=== PATIENT | female | born 1945 | race Caucasian/White ===

== ENCOUNTER 2020-05-05 11:01 | Day surgery (SDC) | payer MEDICARE, MEDICAID, SELFPAY ==
[2020-04-30 13:58] VITALS: BMI 25.4
--- NOTE | 2020-05-04 10:13 | HO.ANESPROP2 ---
Documented by User: Arlet Soliman 05/04/20 10:16 HPI - Anesthesia Eval Consult details Narrative: 74yo F for colonoscopy: repeat from 02/2020 to follow up on polyp with high grade dysplasia PMFSH Past Medical History Medical History Arthritis Asthma Diabetes Elevated cholesterol GERD (gastroesophageal reflux disease) HTN (hypertension) Surgical History Surgical History H/O cataract extraction History of carpal tunnel release Hx of colonoscopy Social History Social History Smoking Status: Unknown if ever smoked Use of substances other than those prescribed or required for medical reasons: No Advance Directives: No Advance Directives Information Provided: No Advance Directives on File: No Meds Allergies Allergy/AdvReac Type Severity Reaction Status Date / Time alendronate sodium Allergy Rash Verified 04/30/20 13:51 [From Fosamax] ciprofloxacin [From Cipro] Allergy Rash Verified 04/30/20 13:48 cyclobenzaprine Allergy Rash Verified 04/30/20 13:51 metformin [From Glucophage] Allergy Rash Verified 04/30/20 13:51 oxycodone Allergy Unknown Verified 04/30/20 13:51 penicillin G Allergy Rash Verified 04/30/20 13:51 Home Medications Medication Instructions Recorded Confirmed Type acetaminophen [Tylenol Ex Str 500 mg PO Q6H PRN 04/30/20 04/30/20 History Rapid Release] albuterol sulfate 0.63 mg INHALATION QID PRN 04/30/20 04/30/20 History enalapril maleate [Vasotec] 5 mg PO DAILY 04/30/20 04/30/20 History glipizide 10 mg PO DAILY 04/30/20 04/30/20 History metformin 500 mg PO TID 04/30/20 04/30/20 History omeprazole 20 mg PO DAILY 04/30/20 04/30/20 History simvastatin 20 mg PO DAILY 04/30/20 04/30/20 History Exam Exam Date and Time: May 04, 2020 1013 Height,Weight and Vital Signs: Height 5 ft 1 in Weight 61.235 kg Assessment and Plan Assessment Anesthesia Assessment: Chart Reviewed Documented by User: Ross Moreno 05/05/20 13:16 PMFSH Past Medical History Medical History Arthritis Asthma Diabetes Elevated cholesterol GERD (gastroesophageal reflux disease) HTN (hypertension) Surgical History Surgical History H/O cataract extraction History of carpal tunnel release Hx of colonoscopy Social History Social History Smoking Status: Unknown if ever smoked Use of substances other than those prescribed or required for medical reasons: No Advance Directives: No Advance Directives Information Provided: No Advance Directives on File: No Meds Allergies Allergy/AdvReac Type Severity Reaction Status Date / Time alendronate sodium Allergy Rash Verified 04/30/20 13:51 [From Fosamax] ciprofloxacin [From Cipro] Allergy Rash Verified 04/30/20 13:48 cyclobenzaprine Allergy Rash Verified 04/30/20 13:51 metformin [From Glucophage] Allergy Rash Verified 04/30/20 13:51 oxycodone Allergy Unknown Verified 04/30/20 13:51 penicillin G Allergy Rash Verified 04/30/20 13:51 Home Medications Medication Instructions Recorded Confirmed Type acetaminophen [Tylenol Ex Str 500 mg PO Q6H PRN 04/30/20 04/30/20 History Rapid Release] albuterol sulfate 0.63 mg INHALATION QID PRN 04/30/20 04/30/20 History enalapril maleate [Vasotec] 5 mg PO DAILY 04/30/20 04/30/20 History glipizide 10 mg PO DAILY 04/30/20 04/30/20 History metformin 500 mg PO TID 04/30/20 04/30/20 History omeprazole 20 mg PO DAILY 04/30/20 04/30/20 History simvastatin 20 mg PO DAILY 04/30/20 04/30/20 History Exam Airway Mallampati Class: II TM Dist: >3cm Neck ROM: Full Denture: Upper
[2020-05-05 12:16] VITALS: BP 144/57; PULSE 85; RESP 16; TEMP 36; O2SAT 98
[2020-05-05] MEDS: Lactated Ringers 1,000 ML 100 ML IVCONT (12:32)
[2020-05-05 13:08] LABS: Glucose, Whole Blood 204 mg/dL (60-115)
--- NOTE | 2020-05-05 13:13 | MHC.SHP ---
Pre-Procedural Eval Section B Chief Complaint: HX POLYPS Details of Present Illness: polyp with high grade dysplasia Relevant Family History (Specify if Yes): No Present Medications: None Medical History: Significant History (see H&P no changes) History of Previous Operations: No relevant previous surgery Allergies: Allergies Allergy/AdvReac Type Severity Reaction Status Date / Time alendronate sodium Allergy Rash Verified 04/30/20 13:51 [From Fosamax] ciprofloxacin [From Cipro] Allergy Rash Verified 04/30/20 13:48 cyclobenzaprine Allergy Rash Verified 04/30/20 13:51 metformin [From Glucophage] Allergy Rash Verified 04/30/20 13:51 oxycodone Allergy Unknown Verified 04/30/20 13:51 penicillin G Allergy Rash Verified 04/30/20 13:51 Review of Systems Sugical H&P ROS: Negative: Constitution, Cardiovascular, Respiratory, Neurological, Psychiatric, Hem-Onc, Allergic/Immunologic, Gastrointestinal, Genitourinary, Musculoskeletal, Integumentary, Endocrine and Eyes/Ears/Nose/Throat Exam Surgical H&P Exam: Normal: HEENT, Normal: Heart, Normal: Lungs, Normal: Extremities, Normal: Abdomen, Normal: Skin and Normal: Neurological Plan Diagnosis/Plan: Unchanged Patient has been examined and remains a candidate for the planned procedure
--- NOTE | 2020-05-05 13:46 | PM.OP ---
Brief Operative Note Date of procedure: 05/05/20 Pre-op diagnosis: colon polyp Post-op diagnosis: same Procedure: colonoscopy with biopsy and cautery of polyp site Surgeon: Min Jerome Anesthesia: MAC Estimated blood loss (mL): 5 Pathology: other (biopsy hepatic flexure polypectomy site) Condition: stable Disposition: PACU
[2020-05-05 13:50] VITALS: BP 130/67; PULSE 82; RESP 16; TEMP 36.3; O2SAT 98
[2020-05-05 14:04] VITALS: BP 137/61; PULSE 82; RESP 16; TEMP 36.1; O2SAT 100
--- NOTE | 2020-05-05 14:30 | OP_ITS ---
SURGEON: Min Jerome MD INDICATIONS: Previous adenoma at the hepatic flexure with high-grade dysplasia. PREOPERATIVE DIAGNOSIS: POSTOPERATIVE DIAGNOSIS: PROCEDURE PERFORMED: Colonoscopy to the terminal ileum with biopsy and cauterization of colon polyp site. ESTIMATED BLOOD LOSS: COMPLICATIONS: ANESTHESIA: ASSISTANTS: SPECIMENS: MEDICATIONS: Monitored anesthesia care. DESCRIPTION OF PROCEDURE: History and physical was performed. The risks and benefits of the procedure were explained to the patient. Informed consent was obtained. The patient was placed in the left lateral decubitus position. A digital rectal exam was performed and was found to be normal. The Olympus pediatric video colonoscope was introduced into the rectum and advanced to the cecum without difficulty. The cecum was identified by transillumination, palpation, and identification of ileocecal valve. Examination was performed and the scope was removed. She tolerated the procedure well and was taken to recovery area in stable condition. FINDINGS: The terminal ileum was normal. The visualized colonic mucosa was normal. The previous polypectomy site was identified at the hepatic flexure. This showed some scarring from the previous polypectomy with a possible small area of polypoid tissue measuring about 3 mm. This was removed with biopsy forceps and the base was cauterized with a snare. Multiple biopsies were obtained as well. No other polyps were identified. Retroflexed examination showed small internal hemorrhoids. IMPRESSION: Colon polyp. RECOMMENDATION: Follow up the biopsy results. MD EKATERINA Oconnell/LAKISHA / [id number]
== END 2020-05-05 14:45 | disposition home or self-care (01) ==
PROVIDERS: PCP Podiatrist; Visit Provider Internal Medicine Gastroenterology
PROC: 0DJD8ZZ Inspection of Lower Intestinal Tract, Via Natural or Artificial Opening Endoscopic (ICD-10-PCS; CPT 45378; principal; 2020-05-05 12:30)
DX: Z12.11 Encounter for screening for malignant neoplasm of colon (principal); Z86.010 Personal history of colon polyps; D12.3 Benign neoplasm of transverse colon; K64.8 Other hemorrhoids; K21.9 Gastro-esophageal reflux disease without esophagitis; E11.9 Type 2 diabetes mellitus without complications; Z88.8 Allergy status to other drugs, medicaments and biological substances; Z88.0 Allergy status to penicillin; Z88.1 Allergy status to other antibiotic agents; J45.909 Unspecified asthma, uncomplicated; Z79.84 Long term (current) use of oral hypoglycemic drugs
CPT/HCPCS: 45380; 82947; 88305

== ENCOUNTER 2020-10-20 06:18 | Day surgery (SDC) | payer MEDICARE, MEDICAID, SELFPAY ==
[2020-10-14 10:16] VITALS: BMI 25.4
--- NOTE | 2020-10-19 08:19 | P.CONAN_ITS ---
Documented by User: Arlet Soliman 10/19/20 08:21 HPI - Anesthesia Eval Consult details Narrative: 75yo F for Colonoscopy s/p Colonoscopy with MAC 04/2020 [facility] Past Medical History Medical History Arthritis Asthma Diabetes Elevated cholesterol GERD (gastroesophageal reflux disease) HTN (hypertension) Surgical History Surgical History H/O cataract extraction History of carpal tunnel release Hx of colonoscopy Social History Social History Smoking Status: Unknown if ever smoked Advance Directives: No Advance Directives Information Provided: Yes Meds Allergies Allergy/AdvReac Type Severity Reaction Status Date / Time alendronate sodium Allergy Intermediate Rash Verified 10/20/20 07:11 [From Fosamax] ciprofloxacin [From Cipro] Allergy Intermediate Rash Verified 10/20/20 07:11 cyclobenzaprine Allergy Intermediate Rash Verified 10/20/20 07:11 metformin [From Glucophage] Allergy Intermediate Rash Verified 10/20/20 07:11 penicillin G Allergy Intermediate Rash Verified 10/20/20 07:11 oxycodone Allergy Mild Diarrhea Verified 10/20/20 07:11 Home Medications Medication Instructions Recorded Confirmed Last Taken Type acetaminophen 500 mg PO Q6H PRN 04/30/20 10/14/20 Unknown History albuterol sulfate 0.63 mg INHALATION QID PRN 04/30/20 10/14/20 Unknown History enalapril maleate [Vasotec] 5 mg PO DAILY 04/30/20 04/30/20 10/20/20 05:00 History glipizide 10 mg PO DAILY 04/30/20 10/14/20 Unknown History metformin 500 mg PO TID 04/30/20 10/14/20 Unknown History omeprazole 20 mg PO DAILY 04/30/20 10/14/20 Unknown History simvastatin 20 mg PO DAILY 04/30/20 10/14/20 Unknown History Exam Exam Date and Time: October 19, 2020 0819 Height,Weight and Vital Signs: Height 5 ft 1 in Weight 61.235 kg Assessment and Plan Assessment Anesthesia Assessment: Chart Reviewed Documented by User: Shelia Major 10/20/20 07:29 [facility] Past Medical History Medical History Arthritis Asthma Diabetes Elevated cholesterol GERD (gastroesophageal reflux disease) HTN (hypertension) Surgical History Surgical History H/O cataract extraction History of carpal tunnel release Hx of colonoscopy Social History Social History Smoking Status: Unknown if ever smoked Advance Directives: No Advance Directives Information Provided: Yes Meds Allergies Allergy/AdvReac Type Severity Reaction Status Date / Time alendronate sodium Allergy Intermediate Rash Verified 10/20/20 07:11 [From Fosamax] ciprofloxacin [From Cipro] Allergy Intermediate Rash Verified 10/20/20 07:11 cyclobenzaprine Allergy Intermediate Rash Verified 10/20/20 07:11 metformin [From Glucophage] Allergy Intermediate Rash Verified 10/20/20 07:11 penicillin G Allergy Intermediate Rash Verified 10/20/20 07:11 oxycodone Allergy Mild Diarrhea Verified 10/20/20 07:11 Home Medications Medication Instructions Recorded Confirmed Last Taken Type acetaminophen 500 mg PO Q6H PRN 04/30/20 10/14/20 Unknown History albuterol sulfate 0.63 mg INHALATION QID PRN 04/30/20 10/14/20 Unknown History enalapril maleate [Vasotec] 5 mg PO DAILY 04/30/20 04/30/20 10/20/20 05:00 History glipizide 10 mg PO DAILY 04/30/20 10/14/20 Unknown History metformin 500 mg PO TID 04/30/20 10/14/20 Unknown History omeprazole 20 mg PO DAILY 04/30/20 10/14/20 Unknown History simvastatin 20 mg PO DAILY 04/30/20 10/14/20 Unknown History Exam Airway Mallampati Class: I (Edentulous) TM Dist: >3cm Neck ROM: Full Denture: Upper Loose/Missing/Broken Teeth: Yes, Upper and Lower Heart: RRR Lungs: CTA Assessment and Plan Assessment Anesthesia Assessment: Anesthesia Plan Discussed and Chart Reviewed Final Anesthetic Review NPO: Yes ASA Class: III Final Preanesthetic Review: Meds/Allgs Chart Reviewed, Consent Obtained/Reviewed and Anes Risks/Benef Reviewed Patient Risk: Intermediate Procedure Risk: Low Anesthetic Plan Anesthetic Plan: MAC: Disposition: Standard PACU
[2020-10-20 07:05] LABS: Glucose, Whole Blood 263 mg/dL (60-115)
[2020-10-20 07:21] VITALS: BP 146/67; PULSE 81; RESP 18; TEMP 36.1; O2SAT 99
--- NOTE | 2020-10-20 07:31 | P.HPSUR_ITS ---
Pre-Procedural Eval Section B Chief Complaint: hx of polyps Details of Present Illness: large polyp on last colonoscopy. evaluate for complete resection Relevant Family History (Specify if Yes): No Relevant Social History: None Present Medications: see Short Stay Collaborative assessment Medical History: Significant History (see H & P, also had covid in july) History of Previous Operations: Relevant previous surgery/procedure and date(s) (colonoscopy in Feb 2020) Allergies: Allergies Allergy/AdvReac Type Severity Reaction Status Date / Time alendronate sodium Allergy Intermediate Rash Verified 10/20/20 07:11 [From Fosamax] ciprofloxacin [From Cipro] Allergy Intermediate Rash Verified 10/20/20 07:11 cyclobenzaprine Allergy Intermediate Rash Verified 10/20/20 07:11 metformin [From Glucophage] Allergy Intermediate Rash Verified 10/20/20 07:11 penicillin G Allergy Intermediate Rash Verified 10/20/20 07:11 oxycodone Allergy Mild Diarrhea Verified 10/20/20 07:11 Review of Systems Sugical H&P ROS: Negative: Constitution, Cardiovascular, Respiratory, Neurological, Psychiatric, Hem-Onc, Allergic/Immunologic, Gastrointestinal, Genitourinary, Musculoskeletal, Integumentary, Endocrine and Eyes/Ears/Nose/Throat Exam Surgical H&P Exam: Normal: HEENT, Normal: Heart, Normal: Lungs, Normal: E xtremities, Normal: Abdomen, Normal: Skin and Normal: Neurological Plan I have reviewed the history and physical and performed a pertinent physical examination on my patient. No changes have occurred unless specified.
--- NOTE | 2020-10-20 07:31 | P.CONAN_ITS ---
[facility] Past Medical History Medical History Arthritis Asthma Diabetes Elevated cholesterol GERD (gastroesophageal reflux disease) HTN (hypertension) Surgical History Surgical History H/O cataract extraction History of carpal tunnel release Hx of colonoscopy Social History Social History Smoking Status: Unknown if ever smoked Advance Directives: No Advance Directives Information Provided: Yes Meds Allergies Allergy/AdvReac Type Severity Reaction Status Date / Time alendronate sodium Allergy Intermediate Rash Verified 10/20/20 07:11 [From Fosamax] ciprofloxacin [From Cipro] Allergy Intermediate Rash Verified 10/20/20 07:11 cyclobenzaprine Allergy Intermediate Rash Verified 10/20/20 07:11 metformin [From Glucophage] Allergy Intermediate Rash Verified 10/20/20 07:11 penicillin G Allergy Intermediate Rash Verified 10/20/20 07:11 oxycodone Allergy Mild Diarrhea Verified 10/20/20 07:11 Home Medications Medication Instructions Recorded Confirmed Last Taken Type acetaminophen 500 mg PO Q6H PRN 04/30/20 10/14/20 Unknown History albuterol sulfate 0.63 mg INHALATION QID PRN 04/30/20 10/14/20 Unknown History enalapril maleate [Vasotec] 5 mg PO DAILY 04/30/20 04/30/20 10/20/20 05:00 History glipizide 10 mg PO DAILY 04/30/20 10/14/20 Unknown History metformin 500 mg PO TID 04/30/20 10/14/20 Unknown History omeprazole 20 mg PO DAILY 04/30/20 10/14/20 Unknown History simvastatin 20 mg PO DAILY 04/30/20 10/14/20 Unknown History Exam Exam Date and Time: October 20, 202031 Height,Weight and Vital Signs: Height 5 ft 1 in Weight 61.235 kg Pertinent Lab Results Pertinent Lab Results: Laboratory Tests 10/20/20 07:01 POC Glucose 263 H Airway Mallampati Class: I TM Dist: >3cm Neck ROM: Full Denture: Upper Loose/Missing/Broken Teeth: Yes, Upper and Lower Heart: RRR Lungs: CTA Assessment and Plan Assessment Anesthesia Assessment: Anesthesia Plan Discussed and Chart Reviewed Final Anesthetic Review NPO: Yes ASA Class: III Final Preanesthetic Review: Meds/Allgs Chart Reviewed, Consent Obtained/Reviewed and Anes Risks/Benef Reviewed Patient Risk: Intermediate Procedure Risk: Low Anesthetic Plan Anesthetic Plan: MAC: Disposition: Standard PACU
[2020-10-20 08:15] VITALS: BP 117/55; PULSE 80; RESP 16; TEMP 36.6; O2SAT 100
--- NOTE | 2020-10-20 08:23 | PM.OP ---
Brief Operative Note Date of Service: 10/20/20 Pre-op diagnosis: tubular adenoma with high grade dysplasia Post-op diagnosis: same Procedure: colonoscopy Surgeon: Min Jerome Anesthesia: MAC Estimated blood loss (mL): 5 Pathology: other (biopsy from prior polypectomy site) Condition: stable Disposition: PACU
[2020-10-20 08:30] VITALS: BP 149/64; PULSE 74; RESP 16; O2SAT 99
--- NOTE | 2020-10-20 08:36 | OP_ITS ---
SURGEON: iMn Jerome MD INDICATIONS: Tubular adenoma with focal high-grade dysplasia on colonoscopy 03/05, assess for completeness of resection. PREOPERATIVE DIAGNOSIS: POSTOPERATIVE DIAGNOSIS: PROCEDURE PERFORMED: Colonoscopy to the terminal ileum with biopsy. ESTIMATED BLOOD LOSS: COMPLICATIONS: ANESTHESIA: ASSISTANTS: SPECIMENS: MEDICATIONS: Monitored anesthesia care. DESCRIPTION OF PROCEDURE: History and physical performed. The risks and benefits of the procedure were explained to the patient. Informed consent was obtained. The patient was placed in the left lateral decubitus position. A digital rectal exam was performed and was found to be normal. The Olympus pediatric video colonoscope was introduced into the rectum and advanced to the cecum without difficulty. The cecum was identified by transillumination, palpation, and identification of ileocecal valve. Examination was performed. The scope was removed. She tolerated the procedure well. Returned to recovery room in stable condition. FINDINGS: The terminal ileum was examined and appeared normal. The visualized colonic mucosa was normal. At the level of the hepatic flexure, the previous polypectomy site was identified. This appeared to show some scarring. There was no apparent residual polypoid tissue. Stella ink was present in the vicinity. The site was biopsied to assess for any residual tissue, although endoscopically, the resection was complete. No other polyps were identified. Retroflexed examination was normal. The quality of the prep was good. IMPRESSION: History of tubular adenoma with high-grade dysplasia. RECOMMENDATION: Follow up the biopsy results. MD EKATERINA Oconnell/PALMIRAL / [id number]
== END 2020-10-20 09:10 | disposition home or self-care (01) ==
PROVIDERS: PCP Internal Medicine; Visit Provider Internal Medicine Gastroenterology
PROC: 0DJD8ZZ Inspection of Lower Intestinal Tract, Via Natural or Artificial Opening Endoscopic (ICD-10-PCS; CPT 45378; principal; 2020-10-20 07:30)
DX: Z12.11 Encounter for screening for malignant neoplasm of colon (principal); Z86.010 Personal history of colon polyps; K63.5 Polyp of colon; K21.9 Gastro-esophageal reflux disease without esophagitis; I10 Essential (primary) hypertension; J45.909 Unspecified asthma, uncomplicated; E11.9 Type 2 diabetes mellitus without complications; Z79.84 Long term (current) use of oral hypoglycemic drugs; Z79.899 Other long term (current) drug therapy
CPT/HCPCS: 45380; 82947; 88305

== ENCOUNTER 2025-03-10 09:31 | Outpatient (AMB) | payer OTHER, MEDICAID, SELFPAY ==
--- NOTE | 2025-03-10 09:34 | MHC.OFFVIS ---
Intake Visit Reasons: dementia Accompanied by: [employer] O[employer]ATOR Allergies alendronate sodium (From Fosamax) Allergy (Intermediate, Verified 03/10/25 09:38) Rash ciprofloxacin (From Cipro) Allergy (Intermediate, Verified 03/10/25 09:38) Rash cyclobenzaprine Allergy (Intermediate, Verified 03/10/25 09:38) Rash metformin (From Glucophage) Allergy (Intermediate, Verified 03/10/25 09:38) Rash penicillin G Allergy (Intermediate, Verified 03/10/25 09:38) Rash oxycodone Allergy (Mild, Verified 03/10/25 09:38) Diarrhea Medication List - Last Reconciled 03/10/25 by Natalie Dawn CNP acetaminophen 500 mg PO Q6H PRN albuterol sulfate 0.63 mg inhalation QID PRN enalapril maleate (Vasotec) 5 mg PO DAILY glipizide 10 mg PO DAILY metformin 500 mg PO TID omeprazole 20 mg PO DAILY quetiapine 25 mg PO BEDTIME 30 days sertraline 25 mg PO DAILY 30 days simvastatin 20 mg PO DAILY HPI Comments Details: 79-year-old woman with Alzheimer dementia with symptoms of forgetfulness, anxiety, and other behavioral symptoms. 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 She returned a few days ago from visiting family down [facility] for a few months. Memory was about the same. Mood was okay. Sleep was okay. She tripped over a rug and fell, fracturing two ribs about two months ago. No other falls. She enjoyed watching TV. [facility] Medical History (Updated 03/10/25 @ 09:38 by Natalie Dawn CNP) Alzheimer dementia GERD (gastroesophageal reflux disease) Arthritis Diabetes Asthma Elevated cholesterol HTN (hypertension) Surgical History History of carpal tunnel release H/O cataract extraction Hx of colonoscopy Review of Systems Const Denies chills, Denies daytime sleepiness, Denies difficulty sleeping, Denies fatigue, Denies fever(s), Denies frequent falls, Denies headache(s), Denies increased appetite, Denies poor appetite, Denies snoring, Denies weakness, Denies weight gain and Denies weight loss Eyes Denies loss of vision ENT Denies vertigo, Denies dizziness and Denies headache(s) Card Denies chest pain at rest, Denies chest pain with activity, Denies syncope, Denies leg edema and Denies palpitations Resp Denies snoring GI Denies constipation, Denies heartburn, Denies diarrhea and Denies nausea Denies urinary frequency, Denies urinary incontinence and Denies urinary urgency Musc Denies abnormal gait, Denies numbness and Denies tingling Skin/Breast Denies dry skin and Denies rash Neuro Denies abnormal gait, Denies vertigo, Denies dizziness, Denies syncope, Denies frequent falls, Denies headache(s), Denies lack of coordination, Denies loss of vision, Reports memory loss, Denies numbness, Denies restless legs, Denies seizure-like activity, Denies tingling, Denies paresthesias, Denies tremor(s) and Denies weakness Psych Denies anxiety, Denies depression, Denies auditory hallucinations, Reports memory loss, Denies visual hallucinations and Denies suicidal ideation Endo Denies fatigue and Denies palpitations Physical Exam Const Other: General Appearance:? normal, in no acute distress. Skin:? no rashes, no significant birthmarks. Heart:? S1, S2 normal, no murmurs. Lungs:? clear anteriorly and posteriorly. Extremities:? no edema. Psych:? alert, cooperative with exam. Neuro Other: Mental Status:?Alert and awake with normal spontaneity of speech, fluency, comprehension, and affect.?She was able to tell me she was here with her granddaughter and her name. She was able to tell me her age and birthday. Cranial Nerves:?Pupils are equal, round and reactive to light. External occular muscles are intact. Visual mendez are full. Face is symmetrical. Facial sensations are normal. Tongue is midline. Palate elevates symmetrically. Shoulder shrugging is normal. Hearing to bedside conversation is normal. Sensory Exam:?....? Coordination:?No ataxia,?no titubation.? Gait Exam: Within normal limits. Cerebellar Signs:?[id number] is okay. Extrapyramidal System:?No tremor, rigidity with normal facial expressions.? Pronator Drift:?Not present.? Involuntary Movements:?No tremors seen.? Speech:?Normal.? Results Reviewed Results Reviewed: CT brain WO at [facility] in Oct 2022: Mild to mod AD type atrophy. Assessment & Plan Assessment & Plan (1) Alzheimer dementia: Code(s): G30.9 - Alzheimer's disease, unspecified; F02.80 - Dementia in other diseases classified elsewhere, unspecified severity, without behavioral disturbance, psychotic disturbance, mood disturbance, and anxiety Category: Medical Qualifiers: Alzheimer's disease onset: unspecified onset Dementia severity: unspecified severity Dementia behavioral or psychological symptom: with mood disturbance Qualified Code(s): G30.9 - Alzheimer's disease, unspecified; F02.83 - Dementia in other diseases classified elsewhere, unspecified severity, with mood disturbance Plan: Continue sertraline 25mg 1 tablet daily. Continue quetiapine 25mg 1 tablet at bedtime. Stay physically and socially active. Coding Level of Care Code Est Pt Level 4 (97491) Diagnoses Alzheimer's dementia with mood disturbance, unspecified dementia severity, unspecified timing of dementia onset G30.9; F02.83 Alzheimer's disease onset: unspecified onset Dementia severity: unspecified severity Dementia behavioral or psychological symptom: with mood disturbance
--- OUTSIDE RECORDS SUMMARY | 2025-03-10 10:20 | XMS_ITS | Patient Health Record ---
Author Organization [facility] Address [address] [place] [id number] Care Team Providers Care Field Gauger Name Role Phone Beatriz Romero Primary Care Provid er Unavailable Min Jerome Jr Unavailable Allergies Allergen (clinical drug ingredient) Drug/Non Drug Allergy documented on EMR Reaction Allergy Type Onset Date Status oxycodone Oxycodone HCl Unknown Drug Allergy Act mireya Glucophage Unknown Drug Allergy Active alendronate Fosamax Unknown Drug Allergy Activ e Cyclobenzaprine HCl Unknown Drug Allergy Active ciprofloxacin Cipro Unknown Drug Allergy Act mireya penicillin G Penicillin G Sodium Unknown Drug Allergy Active Reason For Referral No Information Medications Medication SIG (Take, Route, Frequency, Duration) Notes Start Date End Date Status Albuterol Sulfate HFA 108 (90 Base) MCG/ACT INHALE DANDO DOS SOPLIDOS POR V A ORAL CADA CUATRO HORAS CUANDO SEA NECESARIO PARA LA SIBILANCIA Inhalation for 17 Active glipiZIDE 10 MG TOME DARRYL TABLETA TOD OS LOS HITCHCOCK Oral for 90 Active Simvastatin 20 MG TOME DARRYL TABLETA TOD OS LOS D AL ACOSTARSE Oral for 30 Active metFORMIN HCl ER 500 MG TOME DARRYL TABLETA AAMIR VECES AL D A Oral for 90 Active Pain Relief Extra Strength 500 MG TOME DARRYL TABLETA CADA SEIS HORAS CUANDO SEA NECESARIO PARA EL DOLOR POR 10 D? Oral for 10 Active MiraLax (colon prep) 8.3 ounce ((238) grams mixed with Gatorade or Crystal Light orally begin at 5:00 p.m. the day before the procedure for 1 day 01/09/2020 Active Lipitor 10 MG 1 tablet Orally Once a day for 30 day(s) Active Immunizations Vaccine Route Administration Date Status Comme nts Influenza Unknown 04/16/2019 Administered Social History Tobacco Use: Social History Observation Description Date Details (start date - stop date) Never Smoker NA - NA Tobacco Use/Smoking Question Answer Notes Patient is a nonsmoker Alcohol Screen Question Answer Notes Did you have a drink containing alcohol in the p ast year? No Points 0 Interpretation Negative Problems Problem Type SNOMED Code ICD Code Onset Dates Problem Status W/U Status Risk Notes Problem 608417337 Colon cancer screening (Z12.11) Active confirmed Problem 54414381 Diarrhea, unspecified type (R19.7) Active confirmed Plan Of Treatment Future Test Test Name Order Date COLONOSCOPY 01/09/2020 Insurance Providers Payer Name Payer Address Payer Phone Subscriber Number Group Number Insured Name Patient Relationship to Insured Coverage Start Date Coverage End Date [facility] [employer] [address] [address] [place] [address] [phone] [id number] EBSSY PARKER Self - patient is the insured MEDICAID OF [facility] [address] [place] [phone] [id number] BESSY PARKER Self - patient is the insured MEDICARE OF [place] [address] [place] [id number] BESSY PARKER Self - patient is the insured Medical (General) History Medical History History ICD Code hypertension type II diabetes mild asthma gerd elevated cholesterol Surgical History Surgery Date(Month/Year) cataract carpel tunnel
--- OUTSIDE RECORDS SUMMARY | 2025-03-10 10:20 | XMS_ITS ---
Author Name [place] NOEOrin Erasmo Address [address] [place] [address] Phone [phone] [facility] Care Team Providers Care Pin Attacher Name Role Phone Orin [place] Unavailable [phone] ARTURO ABRAMS Unavailable [phone] [facility] Unavailable Reason for Referral Not Available Allergies, adverse reactions, alerts Allergen Type Reaction Severity Status Onset Date Ciprofloxacin Allergy to substance (disorder) Unknown Unkn own Active N/A Fosamax Allergy to substance (disorder) Unknown Unknown Active N/A Cyclobenzaprine Allergy to substance (disorder) Unknown Un known Active N/A Penicillin Allergy to substance (disorder) Unknown Unknown Active N/A Oxycodone Allergy to substance (disorder) Unknown Unknown Active N/A History of medication use Medication Class Instructions Start Date End Date Atorvastatin Calcium 80 mg Tab take 1 tablet orally once daily 2021-10-22 No Data Available Enalapril Maleate 20 mg Tab 1 tablet orally daily 2021 No Data Available glipiZIDE 10 mg Tab 1 tablet orally daily 2021-10-22 2024-08-07 metFORMIN ER 500 mg Tab ER 24hr 1 tablet three times a day 2021-10-22 2024-08-07 Metoprolol Succinate ER 25 mg Tab ER 24hr 1 tablet once daily 2021-10-22 No Data Available Omeprazole 20 mg Cap delayed rel 1 tablet daily 2021-10-22 2024-08-07 OneTouch UltraSoft Lancets Miscellaneous No Data Available 2021-10-22 No Data Available OneTouch Ultra Strip No Data Available 2021-10-22 No Data Available Diclofenac Sodium 1 % Gel No Data Available 2022-04-29 No Data Available Acetaminophen ER 650 mg Tab ER No Data Available 2022-06-21 No Data Available Albuterol Sulfate HFA 108 (90 Base) MCG/ACT Aerosol Solution Inhalation 1-2 puffs every 4-6 hrs, as needed for coughing or SOA 2022-08-01 No Data Available Meclizine 12.5 mg Tab 1 tablet orally as needed 4-06 2024-08-07 MAGNESIUM OXIDE 400 MG TABLET 1 tablet PO daily 2022-11-02 No Data Available Magnesium Oxide -Mg Supplement 400 (240 mg) MG Tab No Data Available 2023-03-22 No Data Available Cyanocobalamin 1000 MCG/ML Solution Injection 1 ml intramuscularly monthly 2023-05-17 No Data Richa ilable Alcohol Prep 70 % Pad No Data Available 2023-05-24 N o Data Available QUEtiapine Fumarate 25 mg Tab 1 tablet orally QHS 2024-08-07 No Data Available Sertraline 25 mg Tab Take 1 tablet daily 2024-08-07 No Data Available Problem List Problem Status Onset Date Resolved Date Synopsis Osteoarthritis Active 2022-08-26 N/A Stable2/10 pain scaleSupportive careManagement as per PMDRecommend OTC oral/topical analgesics09/26/2023:Follows up with PCP.Reports chronic generalized joint pain. Takes Tylenol as needed.Uses walker and cane as needed. hypertension Active 2022-08-26 N/A BP range 130 -140s/70-80sRX: Glipizide, Metformin for DM Enalapril, Metoprolol for HTNManagement as per PMDRecommend low salt dietBP goal < 140/90, annual kidney function testmonitor for hypoglycemia - if any signs, consider stopping glipizid09/26/2023:Follows up with PCP.Glucose: 108 mg/dl at home today.Does not have BP monitor at home. Task initiated ordering one. Patient instructed to start checking BP and start a BP log. Taking: DM: Glipizide, Metformin HTN: Enalapril, MetoprololDenies any acute complaint.Continue treatment as prescribed, follow up as instructed.Monitor BP regularly at home.Follow low Sodium diet. Contact CB 06/02 as needed.08/07/24:enalapril was increased to 20mg Checks her BP sometimesStates had issues with her insurance and had issues seeing her PCP (last seen December 25, 2023), has an appt with a new PCP on Monday last BW on December 25, 2023 GERD (gastroesophageal reflux disease) Active 2022-08-26 N/A ControlledRX: OmeprazoleManagement as per PMDAvoid greasy foods, spicy foods, caffeine, citrus09/26/2023:Stable. Follows up with PCP.Taking: Omeprazole 20 mg Cap delayed rel 1 tablet dailyDenies any acute complaints. 08/07/24: omeprazole stopped, changed her diet and has been doing ok without it. Has been a while since stopped taking it. Asthma Active 2022-08-26 N/A StableRX: Albu terol PRNManagement as per PMDNotify CB of any worsening symptoms09/26/2023:Stable. No recent or current respiratory symptoms.No supplemental oxygen at home.Follows up with PCP.Has Rx for: Albuterol to use as needed. Contact CB 06/02 as needed. 08/07/24: has not had to use ventolin for a long time Alzheimer dementia Active 2024-08-07 N/A diagno sed with it couple of months ago by a neurologiststarted on zoloft and seroquelHas agitation/anxiety states memory is ok as of now for the most part remembers things forgetting to eat at times due to it Needs assistance with most of her ADL's as she forgets at times. Other problems related to medical facilities and other health care Active 2023-09-26 N/A DEMENTIA CO NTINGENCY PLANLast updated: 08/07/2024Member to call for the following symptoms: Aggression/ Agitation/ Anorexia/ Anxiety/ BP <100/60 / Delirium/ Dysuria/ Fever/ HR <50 / HR >100 / Insomnia/ Urinary frequency/ WithdrawnPlanned intervention: Place order for urinalysis and culture; family to take sample to lab/ Encourage increased fluid intake/ Ask about last bowel movement/ Ask about use of pain medications and treat pain if present/ Stop recently started medication: _/ Assess for UTI symptoms; if present, start Bactrim DS BID x3 days/ Assess for UTI symptoms; if present, start Macrobid 100mg BID x5 days/ Trazodone 50mg at bedtime/ Melatonin 3mg at bedtime/ Quetiapine 50mg PO q12h PRN agitation/ Risperidone 0.5mg PO q12h PRN agitation/ Sertraline 25mg daily/ Limit extra stimulation Type 2 diabetes mellitus with hyperlipidemiaType 2 diabetes mellitus with diabetic neuropathy, without long-term current use of insulinType 2 diabetes mellitus with both eyes affected by mild nonpro Active 2022-08-26 N/A StableRX: AtorvastatinManagement as per PMDRecommend low cholesterol, annual cholesterol screening09/26/2023:Follows up with PCP.Glucose: 108 mg/dl at home today.Taking: DM: Glipizide, Metformin H: Atorvastatin 80 mg QDAdvised to follow low fat, low carb, heart healthy diet.Continue treatment as prescribed. Follow up with PCP as scheduled.Contact CB 06/02 as needed.08/07/24: states metformin and glipizide was stopped by the patient as the doctor changed her prescriptions without checking her new BW Has an appt with PCP now on Monday for BW and to reevaluate these medicationsAverage BG: around 125's 150s sees optimization manager- gets eye injections a month (macular degeneration) Encounters Encounters Type Facility Date of Service Diagnosis/Co mplaint New patient,40-59min; chronic exacerbation, 2 stable chronic or 1 acute illness add add modifier 95 for video (do not use for phone, instead use [id number]) [facility] ([place]/2022 Hyperlipidemia, unspecifiedGastro-esophageal reflux disease without esophagitisUnspecified asthma, uncomplicatedUnspecified osteoarthritis, unspecified siteType 2 diabetes mellitus without complicationsEssential (primary) hypertension New patient,40-59min; chronic exacerbation, 2 stable chronic or 1 acute illness add add modifier 95 for video (do not use for phone, instead use [id number]) [facility] [place] 08[place]/2022 New patient,40-59min; chronic exacerbation, 2 stable chronic or 1 acute illness add add modifier 95 for video (do not use for phone, instead use 18901-29) [facility] [place] 08/26/2022 New patient,40-59min; chronic exacerbation, 2 stable chronic or 1 acute illness add add modifier 95 for video (do not use for phone, instead use 37811-49) [facility] [place] 08/26/2022 New patient,40-59min; chronic exacerbation, 2 stable chronic or 1 acute illness add add modifier 95 for video (do not use for phone, instead use [id number]) [facility] [place] 08[place]/2022 New patient,40-59min; chronic exacerbation, 2 stable chronic or 1 acute illness add add modifier 95 for video (do not use for phone, instead use 55565-07) [facility] ([place] 08/26/2022 New patient,40-59min; chronic exacerbation, 2 stable chronic or 1 acute illness add add modifier 95 for video (do not use for phone, instead use 62889-44) [facility] [place] 08/26/2022 New patient,40-59min; chronic exacerbation, 2 stable chronic or 1 acute illness add add modifier 95 for video (do not use for phone, instead use [id number]) [facility] [place] 08/[place]/2022 Estab. patient 30-39min; chronic exacerbation, 2 stable chronic or 1 acute illness add add modifier 95 for video, (do not use for phone, instead use [id number]) [facility] [place] 09[place]/2023 Type 2 diabetes mellitus wit h other specified complicationHyperlipidemia, unspecifiedGastro-esophageal reflux disease without esophagitisUnspecified asthma, uncomplicatedEssential (primary) hypertensionUnspecified osteoarthritis, unspecified siteOther problems related to medical facilities and other health care Estab. patient 30-39min; chronic exacerbation, 2 stable chronic or 1 acute illness add add modifier 95 for video, (do not use for phone, instead use [id number]) [facility] [place] 09[place] Estab. patient 30-39min; chronic exacerbation, 2 stable chronic or 1 acute illness add add modifier 95 for video, (do not use for phone, instead use 86211-60) [facility] [place] 09[place]/20[place] Estab. patient 30-39min; chronic exacerbation, 2 stable chronic or 1 acute illness add add modifier 95 for video, (do not use for phone, instead use 05160-21) [facility] [place] 09/26/2023 Estab. patient 30-39min; chronic exacerbation, 2 stable chronic or 1 acute illness add add modifier 95 for video, (do not use for phone, instead use 85856-00) [facility] ([place]) 09/26/20[place] Estab. patient 30-39min; chronic exacerbation, 2 stable chronic or 1 acute illness add add modifier 95 for video, (do not use for phone, instead use 80895-01) [facility] [place]20[place] Estab. patient 30-39min; chronic exacerbation, 2 stable chronic or 1 acute illness add add modifier 95 for video, (do not use for phone, instead use 53145-93) [facility] [place]20[place] Estab. patient 30-39min; chronic exacerbation, 2 stable chronic or 1 acute illness add add modifier 95 for video, (do not use for phone, instead use 09281-39) [facility] [place] 09[place] [facility] [place]2023 Essential (primary) hypertensionType 2 diabetes mellitus with other specified complicationHyperlipidemia, unspecifiedGastro-esophageal reflux disease without esophagitisUnspecified asthma, uncomplicatedUnspecified osteoarthritis, unspecified siteOther problems related to medical facilities and other health care No Data Available [facility] [place] [facility] [facility] [facility] [facility] Estab. patient 20-29min; 1 stable chronic or 2 minor; add add modifier 95 for video, modifier [address] [facility] [place]20[place] Alzheimer's disease, unspecifiedDementia in oth diseases classd elswhr w/o behavrl disturbType 2 diabetes mellitus with other specified complicationHyperlipidemia, unspecifiedType 2 diabetes mellitus with diabetic neuropathy, unspecifiedType 2 diabetes mellitus with mild nonproliferative diabetic retinopathy with macular edema, bilateralEssential (primary) hypertensionGastro-esophageal reflux disease without esophagitisUnspecified asthma, uncomplicatedUnspecified osteoarthritis, unspecified siteOther problems related to medical facilities and other health care Estab. patient 20-29min; 1 stable chronic or 2 minor; add add modifier 95 for video, modifier 93 for phone [facility] [place] Estab. patient 20-29min; 1 stable chronic or 2 minor; add add modifier 95 for video, modifier 93 for phone [facility] [place] Estab. patient 20-29min; 1 stable chronic or 2 minor; add add modifier 95 for video, modifier 93 for phone [facility] [place] Estab. patient 20-29min; 1 stable chronic or 2 minor; add add modifier 95 for video, modifier 93 for phone [facility] Estab. patient 20-29min; 1 stable chronic or 2 minor; add add modifier 95 for video, modifier 93 for phone [facility] [place] Estab. patient 20-29min; 1 stable chronic or 2 minor; add add modifier 95 for video, modifier 93 for phone [facility] [place]20[place] Estab. patient 20-29min; 1 stable chronic or 2 minor; add add modifier 95 for video, modifier 93 for phone [facility] Vital Signs Date of Collection Vitals 2022-08-26 06:58:39 Height - 152.4 cmWei ght - 53.98 kgBody Mass Index (BMI) - 23.24 kg/m2BP Diastolic - 73.0 mm[Hg]BP Systolic - 141.0 mm[Hg] 2023-09-26 08:34:39 Height - 152.4 cmWei ght - 53.07 kgBody Mass Index (BMI) - 22.85 kg/m2Pain Scale - 4.0 {score} 2023-10-11 08:22:22 Weight - 53.07 kgBod y Mass Index (BMI) - 22.85 kg/m2BP Diastolic - 79.0 mm[Hg]BP Systolic - 120.0 mm[Hg]Pain Scale - 0.0 {score} 2024-08-07 13:17:19 Height - 142.24 cmWe ight - 53.98 kgBody Mass Index (BMI) - 26.68 kg/m2BP Diastolic - 73.0 mm[Hg]BP Systolic - 138.0 mm[Hg]Pain Scale - 2.0 {score} Social History Social History Social History Observation Description Effec tive Time Current Smoking Status Never smoker 2025-02-15 6 Sex Female History of Procedures Procedures Service Procedure code Service date Servicing provider Phone# New patient,40-59min; chronic exacerbation, 2 stable chronic or 1 acute illness add add modifier 95 for video (do not use for phone, instead use [id number]) 63170 2022-08-26 No Data Available No Data Availa ble Medication Review by prescribing provider or pharmacist documented (1160F) 1160F 2022-08-26 No Data Available No Data Richa ilable Functional Status Assessed (1170F) 1170F 2022-08-26 No Data Available No Data Avail able Pain Assessment - Pain Documented on a Pain Scale (1125F) 1125F 2022-08-26 No Data Available No Data Richa ilable Advance Care Directive Advance care planning discussion documented in the medical record (1158F) 1158F 2022-08-26 No Data Available No Data Availa ble BMI obtained (3008F) 3008F 2022-08-26 No Data Availab le No Data Available SBP >= 140 3077F 2022-08-26 No Data Available No Data Available DBP <80 (3078F) 3078F 2022-08-26 No Data Available No Data Available Estab. patient 30-39min; chronic exacerbation, 2 stable chronic or 1 acute illness add add modifier 95 for video, (do not use for phone, instead use 83446-97) 13008 2023-09-26 No Data Available No Data Availa ble Advance care planning discussed and documented advance care plan or surrogate decision-maker was documented in the medical record. (1123F) 1123F 2023-09-26 No Data Available No Data Availa ble Functional Status Assessed (1170F) 1170F 2023-09-26 No Data Available No Data Avail able Medication List Documented (1159F) 1159F 2023-09-26 No Data Available No Data Richa ilable Medication Review by prescribing provider or pharmacist documented (1160F) 1160F 2023-09-26 No Data Available No Data Richa ilable BMI obtained (3008F) 3008F 2023-09-26 No Data Availab le No Data Available Advance Care Directive Advance care planning discussion documented in the medical record (1158F) 1158F 2023-09-26 No Data Available No Data Availa ble Pain Assessment - Pain Documented on a Pain Scale (1125F) 1125F 2023-09-26 No Data Available No Data Richa ilable No Data Available 92000 2023-10-11 No Data Available No Data Available Medication List Documented (1159F) 1159F 2023-10-11 No Data Available No Data Richa ilable Pain Assessment - NO pain present (1126F) 1126F 2023-10-11 No Data Available No Data A vailable BMI obtained (3008F) 3008F 2023-10-11 No Data Availab le No Data Available SBP < 130 (3074F) 3074F 2023-10-11 No Data Available No Data Available DBP <80 (3078F) 3078F 2023-10-11 No Data Available No Data Available Estab. patient 20-29min; 1 stable chronic or 2 minor; add add modifier 95 for video, modifier 93 for phone 04876 2024-08-07 No Data Available No Data Availa ble Medication Review by prescribing provider or pharmacist documented (1160F) 1160F 2024-08-07 No Data Available No Data Richa ilable SBP 130-139 (3075F) 3075F 2024-08-07 No Data Availabl e No Data Available DBP <80 (3078F) 3078F 2024-08-07 No Data Available No Data Available Pain Assessment - Pain Documented on a Pain Scale (1125F) 1125F 2024-08-07 No Data Available No Data Richa ilable Advance Care Directive Advance care planning discussion documented in the medical record (1158F) 1158F 2024-08-07 No Data Available No Data Availa ble Advance care planning discussed and documented advance care plan or surrogate decision-maker was documented in the medical record. (1123F) 1123F 2024-08-07 No Data Available No Data Availa ble Medication List Documented (1159F) 1159F 2024-08-07 No Data Available No Data Richa ilable Functional Status Functional Category Effective Dates Needs assistance with bathin g and dressing. No assistance with toileting, eating or transferring. Uses a walker and a cane to ambulate. 2022-08-26 Bathing: Needs Assistance 2023-09-26 Activities of Daily Livin2023-09-26 Dressing: Needs Assistance 2023-09-26 Ambulation/Walking: Needs Assistance, us es cane and walker. 2023-09-26 Toileting: Needs Assistance 2023-09-26 Eating: Independent 2023-09-26 Transferring: Needs Assistance 2023-09-15 2 Falls in the past 6 months: yes just min or due to tripping 2024-08-07 Mental Status Status Date AAO x 3 2022-08-26 Assessments Date of Service Assessments 2022-08-26 06:58:39 HyperlipidemiaGERD ( gastroesophageal reflux disease)AsthmaOsteoarthritisDiabetes mellitus with complication of hypertension 2023-09-26 08:34:39 Diabetes mellitus wi th complication of hypertensionType 2 diabetes mellitus with hyperlipidemiaGERD (gastroesophageal reflux disease)AsthmaOsteoarthritisOther problems related to medical facilities and other health care 2023-10-11 08:22:22 hypertensionType 2 d iabetes mellitus with hyperlipidemiaGERD (gastroesophageal reflux disease)AsthmaOsteoarthritisOther problems related to medical facilities and other health care 2024-08-07 13:17:19 hypertensionGERD (ga stroesophageal reflux disease)AsthmaOsteoarthritisOther problems related to medical facilities and other health careAlzheimer dementiaType 2 diabetes mellitus with hyperlipidemiaType 2 diabetes mellitus with diabetic neuropathy, without long-term current use of insulinType 2 diabetes mellitus with both eyes affected by mild nonpro Plan of Care Date of Service Plans 2022-08-26 06:58:39 Medication Review by prescribing provider or pharmacist documented (1160F)Medication List Documented (1159F)Functional Status Assessed (1170F)Advance Care Directive Advance care planning discussion documented in the medical record (1158F)BMI obtained (3008F)sbdbPain Assessment - Pain Documented (1125F)Phone (patient, parent, or guardian); 21-30 minutes of medical discussion (no modifier 95)Continue to see PCP. Follow-up with Roland as needed for any acute or disease education needs that may arise.StableRX: AtorvastatinManagement as per PMDRecommend low cholesterol, annual cholesterol screeningControlledRX: OmeprazoleManagement as per PMDAvoid greasy foods, spicy foods, caffeine, citrusStableRX: Albuterol PRNManagement as per PMDNotify CB of any worsening symptomsStable2/10 pain scaleSupportive careManagement as per PMDRecommend OTC oral/topical analgesicsStableBP range 130-140s/70-80sRX: Glipizide, Metformin for DM Enalapril, Metoprolol for HTNManagement as per PMDRecommend low salt dietBP goal < 140/90, annual kidney function test 2023-09-26 08:34:39 Medication Review by prescribing provider or pharmacist documented (1160F)Medication List Documented (1159F)Functional Status Assessed (1170F)Advance Care Directive Advance care planning discussion documented in the medical record (1158F)BMI obtained (3008F)Televideo 30-39min; chronic exacerbation, 2 stable chronic or 1 acute illness add modifier 95Advance care planning discussed and documented advance care plan or surrogate decision-maker was documented in the medical record. (1123F)Pain Assessment - Pain Documented (1125F)Continue to see PCP. Follow-up with [facility] as needed for any acute or disease education needs that may arise.BP range 130-140s/70-80sRX: Glipizide, Metformin for DM Enalapril, Metoprolol for HTNManagement as per PMDRecommend low salt dietBP goal < 140/90, annual kidney function testmonitor for hypoglycemia - if any signs, consider stopping glipizid09/26/2023:Follows up with PCP.Glucose: 108 mg/dl at home today.Does not have BP monitor at home. Task initiated ordering one. Patient instructed to start checking BP and start a BP log. Taking: DM: Glipizide, Metformin HTN: Enalapril, MetoprololDenies any acute complaint.Continue treatment as prescribed, follow up as instructed.Monitor BP regularly at home.Follow low Sodium diet. Contact CB 06/02 as needed.BP monitor ordered. Follow up scheduled in 2 weeks for BP follow up.StableRX: AtorvastatinManagement as per PMDRecommend low cholesterol, annual cholesterol screening09/26/2023:Follows up with PCP.Glucose: 108 mg/dl at home today.Taking: DM: Glipizide, Metformin H: Atorvastatin 80 mg QDAdvised to follow low fat, low carb, heart healthy diet.Continue treatment as prescribed. Follow up with PCP as scheduled.Contact CB 24 as needed.ControlledRX: OmeprazoleManagement as per PMDAvoid greasy foods, spicy foods, caffeine, citrus09/26/2023:Stable. Follows up with PCP.Taking: Omeprazole 20 mg Cap delayed rel 1 tablet dailyDenies any acute complaints.StableRX: Albuterol PRNManagement as per PMDNotify CB of any worsening symptoms09/26/2023:Stable. No recent or current respiratory symptoms.No supplemental oxygen at home.Follows up with PCP.Has Rx for: Albuterol to use as needed. Contact CB 24 as needed.Stable2/10 pain scaleSupportive careManagement as per PMDRecommend OTC oral/topical analgesics09/26/2023:Follows up with PCP.Reports chronic generalized joint pain. Takes Tylenol as needed.Uses walker and cane as needed.CONTINGENCY PLANMember to call for the following symptoms: Blood sugar >300/ More thirsty than usual/ Urinating more than usual/ Confusion or change in behaviorPlanned intervention: Encourage adequate water intake/ Elevate legs/ Limit high-sugar and high-carbohydrate foods/ Go for a walk.Assess current symptoms and treat accordingly. 2023-10-11 08:22:22 Phone (patient, pare nt, or guardian); 5-10 minutes of medical discussion (no modifier 95)SBP < 130 (3074F)DBP <80 (3078F)Continue to see PCP. Follow-up with [facility] as needed for any acute or disease education needs that may arise 06/02.BP range 130-140s/70-80sRX: Glipizide, Metformin for DM Enalapril, Metoprolol for HTNManagement as per PMDRecommend low salt dietBP goal < 140/90, annual kidney function testmonitor for hypoglycemia - if any signs, consider stopping glipizid09/26/2023:Follows up with PCP.Glucose: 108 mg/dl at home today.Does not have BP monitor at home. Task initiated ordering one. Patient instructed to start checking BP and start a BP log. Taking: DM: Glipizide, Metformin HTN: Enalapril, MetoprololDenies any acute complaint.Continue treatment as prescribed, follow up as instructed.Monitor BP regularly at home.Follow low Sodium diet. Contact CB 24/7 as needed.StableRX: AtorvastatinManagement as per PMDRecommend low cholesterol, annual cholesterol screening09/26/2023:Follows up with PCP.Glucose: 108 mg/dl at home today.Taking: DM: Glipizide, Metformin H: Atorvastatin 80 mg QDAdvised to follow low fat, low carb, heart healthy diet.Continue treatment as prescribed. Follow up with PCP as scheduled.Contact CB 24/7 as needed.ControlledRX: OmeprazoleManagement as per PMDAvoid greasy foods, spicy foods, caffeine, citrus09/26/2023:Stable. Follows up with PCP.Taking: Omeprazole 20 mg Cap delayed rel 1 tablet dailyDenies any acute complaints.StableRX: Albuterol PRNManagement as per PMDNotify CB of any worsening symptoms09/26/2023:Stable. No recent or current respiratory symptoms.No supplemental oxygen at home.Follows up with PCP.Has Rx for: Albuterol to use as needed. Contact CB 24/7 as needed.Stable2/10 pain scaleSupportive careManagement as per PMDRecommend OTC oral/topical analgesics09/26/2023:Follows up with PCP.Reports chronic generalized joint pain. Takes Tylenol as needed.Uses walker and cane as needed.CONTINGENCY PLANMember to call for the following symptoms: Blood sugar >300/ More thirsty than usual/ Urinating more than usual/ Confusion or change in behaviorPlanned intervention: Encourage adequate water intake/ Elevate legs/ Limit high-sugar and high-carbohydrate foods/ Go for a walk.Assess current symptoms and treat accordingly. 2024-08-07 13:17:19 Functional Status As sessed (1170F)Advance Care Directive Advance care planning discussion documented in the medical record (1158F)Advance care planning discussed and documented advance care plan or surrogate decision-maker was documented in the medical record. (1123F)SBP 130-139 (3075F)DBP <80 (3078F)Estab. patient 20-29min; 1 stable chronic or 2 minor; add add modifier 95 for video, modifier 93 for phoneMedication List Documented (1159F)Medication Review by prescribing provider or pharmacist documented (1160F)Pain Assessment - Pain Documented (1125F)Continue to see PCP. Follow-up with [facility] as needed for any acute or disease education needs that may arise.BP range 130-140s/70-80sRX: Glipizide, Metformin for DM Enalapril, Metoprolol for HTNManagement as per PMDRecommend low salt dietBP goal < 140/90, annual kidney function testmonitor for hypoglycemia - if any signs, consider stopping glipizid09/26/2023:Follows up with PCP.Glucose: 108 mg/dl at home today.Does not have BP monitor at home. Task initiated ordering one. Patient instructed to start checking BP and start a BP log. Taking: DM: Glipizide, Metformin HTN: Enalapril, MetoprololDenies any acute complaint.Continue treatment as prescribed, follow up as instructed.Monitor BP regularly at home.Follow low Sodium diet. Contact CB 24/ as needed.08/07/24:enalapril was increased to 20mg Checks her BP sometimesStates had issues with her insurance and had issues seeing her PCP (last seen December 25, 2023), has an appt with a new PCP on Monday last BW on December 244ControlledRX: OmeprazoleManagement as per PMDAvoid greasy foods, spicy foods, caffeine, citrus09/26/2023:Stable. Follows up with PCP.Taking: Omeprazole 20 mg Cap delayed rel 1 tablet dailyDenies any acute complaints. 08/07/24: omeprazole stopped, changed her diet and has been doing ok without it. Has been a while since stopped taking it.StableRX: Albuterol PRNManagement as per PMDNotify CB of any worsening symptoms09/26/2023:Stable. No recent or current respiratory symptoms.No supplemental oxygen at home.Follows up with PCP.Has Rx for: Albuterol to use as needed. Contact CB 24/7 as needed. 08/07/24: has not had to use ventolin for a long timeStable2/10 pain scaleSupportive careManagement as per PMDRecommend OTC oral/topical analgesics09/26/2023:Follows up with PCP.Reports chronic generalized joint pain. Takes Tylenol as needed.Uses walker and cane as needed.DEMENTIA CONTINGENCY PLANLast updated: 08/07/2024Member to call for the following symptoms: Aggression/ Agitation/ Anorexia/ Anxiety/ BP <100/60 / Delirium/ Dysuria/ Fever/ HR <50 / HR >100 / Insomnia/ Urinary frequency/ WithdrawnPlanned intervention: Place order for urinalysis and culture; family to take sample to lab/ Encourage increased fluid intake/ Ask about last bowel movement/ Ask about use of pain medications and treat pain if present/ Stop recently started medication: _/ Assess for UTI symptoms; if present, start Bactrim DS BID x3 days/ Assess for UTI symptoms; if present, start Macrobid 100mg BID x5 days/ Trazodone 50mg at bedtime/ Melatonin 3mg at bedtime/ Quetiapine 50mg PO q12h PRN agitation/ Risperidone 0.5mg PO q12h PRN agitation/ Sertraline 25mg daily/ Limit extra stimulationdiagnosed with it couple of months ago by a neurologiststarted on zoloft and seroquelHas agitation/anxiety states memory is ok as of now for the most part remembers things forgetting to eat at times due to it Needs assistance with most of her ADL's as she forgets at times.StableRX: AtorvastatinManagement as per PMDRecommend low cholesterol, annual cholesterol screening09/26/2023:Follows up with PCP.Glucose: 108 mg/dl at home today.Taking: DM: Glipizide, Metformin H: Atorvastatin 80 mg QDAdvised to follow low fat, low carb, heart healthy diet.Continue treatment as prescribed. Follow up with PCP as scheduled.Contact CB 06/02 as needed.08/07/24: states metformin and glipizide was stopped by the patient as the doctor changed her prescriptions without checking her new BW Has an appt with PCP now on Monday for BW and to reevaluate these medicationsAverage BG: around 125's 150s sees optimization manager- gets eye injections a month (macular degeneration) Goals Date Goal 2022-08-26 Contact CB for any a cute concerns or questions about your disease process 2023-09-26 Remember to keep all appointments with your PCP and specialists. Call CB / if you have questions or concerns. Discussed how to contact [facility] via phone or tablet. 24/ phone number provided. 2023-09-26 Does not have BP mon itor at home. Task initiated ordering one. Patient instructed to start checking BP and start a BP log to provide readings on next f/u appt. F/u appt scheduled for BP f/u. 2024-08-07 Continue taking medi cations as directed and keep all follow up appointments with established PCP and Specialist. Health Concerns Date Concern 2024-08-07 [facility] Visit completed using audio/video. Patient/Guardian agreed to visit via telehealth. Today, patient has chief complaint of: follow up care and comprehensive review. Granddaughter Racquel on the line assisting and speaks Yakut. Reviewed Allergies, Medications, Active Medical conditions, past medical/surgical history, Social history. 2024-08-07 Advance Care Planmartin chand conversation with: Yazmin sweeney, Daughter, Shanthi Sims is healthcare Proxy. Not in hospice/palliative care. Full code. 2024-08-07 Most recent hospital stay(s) or ER visit(s) and precipitating factors: No 2024-08-07 Open HEDIS Measure christina castillo: Yes
--- OUTSIDE RECORDS SUMMARY | 2025-03-10 10:21 | XMS_ITS | Clinical Summary ---
Author Organization [facility] [address] [place] [address] [place] [phone] Phone Care Team Providers Care Educational Interpreter Name Role Phone Brissa Jerez MD Primary Care Provider Allergies Active Allergy Reactions Criticality Noted Date Comments Alendronic Acid 02/16/2017 Fosamax .anaphylaxis Ciprofloxacin 02/16/2017 anaphylaxis Cyclobenzaprine 02/16/2017 anaphylaxis Oxycodone 02/16/2017 Anaphylaxis Penicillins 02/16/2017 Rash,sob,swelling Medications acetaminophen (TYLENOL 8 HOUR) 650 mg 8 hr tablet Take 1 Tablet by mouth every 8 hours as needed for Pain. 3 Active albuterol HFA (PROAIR HFA ; PROVENTIL HFA ; VENTOLIN HFA) 90 mcg/actuation inhaler Inhale 2 Puffs into the lungs every 4 hours as needed for Wheezing. 3 Active isopropyl alcohol-benzoca ine 70-6 % pads, medicated 1 Each by Does not apply route every 30 days. Use to inject vitamin B12 once monthly 3 Active cholecalciferol (VITAMIN D-3) 50 mcg (2,000 unit) capsule Take 1 Capsule by mouth. 3 Active diclofenac (VOLTAREN) 1 % topical gel Apply 4 g topically 4 times daily as needed (pain). 3 Active QUEtiapine (SEROquel) 25 mg tablet Take 1 Tablet by mouth daily. 4 Active sertraline (ZOLOFT) 25 mg tablet Take 1 Tablet by mouth daily. 4 Active syringe with needle 10 mL 23x 07/20 syringe Use to inject vitamin B12 once monthly 3 Active Sensing Electromagnetic PlusTouch Ultra Test test strip USE DIRECTED TO TEST BLOOD SUGAR 2 TIMES A DAY 100 strip 5 5 Active lancets (OneTouch Delica Plus Lancet) 30 gauge by Other route 1 (one) time each day before breakfast. 100 each 1 5 Active cyanocobalamin (VITAMIN B-12) 1,000 mcg/mL injection Inject 1 mL (1,000 mcg total) into the shoulder, thigh, or buttocks every 30 (thirty) days. 1 mL 5 5 Active amLODIPine (NORVASC) 5 mg tablet Take 1 tablet (5 mg total) by mouth at bedtime. 28 each 5 Active atorvastatin (LIPITOR) 80 mg tablet Take 1 tablet (80 mg total) by mouth at bedtime. 28 tablet 5 Active enalapril (VASOTEC) 20 mg tablet Take 1 tablet (20 mg total) by mouth at bedtime. 28 tablet 5 Active magnesium oxide (MAG-OX) 400 mg (241.3 elemental magnesium) tablet Take 1 tablet (400 mg total) by mouth 2 (two) times a day. 56 tablet 5 Active metFORMIN XR (GLUCOPHAGE-XR) 500 mg 24 hr tablet Take 4 tablets (2,000 mg total) by mouth at bedtime. 112 tablet 5 Active metoprolol succinate (TOPROL-XL) 25 mg 24 hr tablet Take 1 tablet (25 mg total) by mouth 1 (one) time each day. 28 tablet 5 Active amLODIPine (NORVASC) 5 mg tablet Take 1 tablet (5 mg total) by mouth at bedtime. 90 each 1 5 02/27/20 25 Discontinu ed(Reorder ) metoprolol succinate (TOPROL-XL) 25 mg 24 hr tablet Take 1 tablet (25 mg total) by mouth 1 (one) time each day. 28 tablet 1 5 02/27/20 25 Discontinu ed(Reorder ) magnesium oxide (MAG-OX) 400 mg (241.3 elemental magnesium) tablet Take 1 tablet (400 mg total) by mouth 2 (two) times a day. 56 tablet 1 5 02/27/20 25 Discontinu ed(Reorder ) metFORMIN XR (GLUCOPHAGE-XR) 500 mg 24 hr tablet Take 4 tablets (2,000 mg total) by mouth at bedtime. 112 tablet 1 5 02/27/20 25 Discontinu ed(Reorder ) enalapril (VASOTEC) 20 mg tablet Take 1 tablet (20 mg total) by mouth at bedtime. 28 tablet 1 5 02/27/20 25 Discontinu ed(Reorder ) atorvastatin (LIPITOR) 80 mg tablet Take 1 tablet (80 mg total) by mouth at bedtime. 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 ([facility] V24, [facility] V28) 02/09/2018 Hyperlipidemia LDL goal <55 01/22/2018 Osteopenia 06/05/2017 Essential hypertension 02/16/2017 Mild intermittent asthma without complication Type 2 diabetes mellitus wit h eye manifestations ([facility] V24, [facility] V28) 02/16/2017 Encounters Date Type Department Care Team Description 02/18/2025 Telephone [facility] [address] [place] [address] Brissa Jerez MD ADDRESS (APPOINTMENT LETTER POSTAGE RETURNED INDICATING PATIENT'S ADDRESS IS NOT KNOWN UNABLE TO FORWARD . CALLED AND SPOKE TO PATIENT'S [employer] WHO CONFIRMED PATIENT'S ADDRESS. [employer] WAS NOTIFIED THAT THE NOTICE WILL BE MAILED AGAIN TODAY AND IF SHE DOESN'T RECEIVE IT BY END OF WEEK, TO NOT PANIC. THE PATIENT CAN FILL OUT THE PAPERWORK. THANK YOU.) from Last 3 Months Immunizations Name Administration Dates Next Due Influenza Quadravalent, MDCK , 0.5ml, preservative free (Flucelvax) 6mo and older 03/25/2020 Influenza trivalent, 0.5mL ( Fluad) 65yo and older 08/12/2024,04/24/2023,04/29/2022,06/09,07/26/2019,05/15/2018,05/02/2017 Pneumococcal conjugate 13 va lent (Prevnar 13, PCV13) 2mo and older 07/26/2019 Pneumococcal polysaccharide 23 valent (Pneumovax 23) 2yo and older 05/09/2017 Td Tetanus diptheria (Tdvax) 7yo and older 06/09/2021 Surgical History Surgery Date Site/Laterality Comments HAND SURGERY 04/02/2017 Right NEOS BREAST BIOPSY 1980s Left : cyst asp EYE SURGERY 07/24/2017 Bilateral eyelid surgery Medical History Medical History Date Comments Essential hypertension 02/16/2017 Mild intermittent asthma wit hout complication 02/16/2017 Osteopenia 06/05/2017 CAD (coronary artery disease) 10/22/2021 cath, occluded OM with collaterals; small PDA 95% Urinary incontinence 04/24/2023 Alzheimer disease ([facility] V 24, [facility] V28) 12/25/2023 Type 2 diabetes mellitus wit h eye manifestations ([facility] V24, [facility] V28) 02/16/2017 B12 deficiency 11/01/2022 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 ([facility] V24, [facility] V28) 02/09/2018 Family History Medical History Relation Name Comments Diabetes Father HTN Diabetes Mother HTN, dementia Diabetes Sister Breast cancer Neg Hx Relation Name Status Comments Brother Alive Father Mother Sister Social History Tobacco Use Types Packs/Day Years Used Date Smoking Tobacco: Never Smokeless Tobacco: Never Tobacco Cessation:Counseling Given: Not Answered Alcohol Use Standard Drinks/Week Comments No 0 (1 standard drink = 0.6 oz pur e alcohol) Comments No Sex and Gender Information Value Date Recorded Sex Assigned at Not on file Legal Sex Female 5:38 AM EST Gender Identity Not on file Sexual Orientation Not on file Obstetrics History Para Term AB IAB SAB Ectopic Multiple Livin g Live Births 3 3 3 3 Date Outcome GA Total Labor Labor/2nd/3rd Weight Sex Type Anes PTL Vanessa A1 A5 Name Clin Term Term Term Last Filed Vital Signs Vital Sign Reading Time Taken Comments Blood Pressure 112/50 08/29/2024 3:00 PM EST Pulse 96 08/29/2024 3:00 PM EST Temperature 35.8 C (96.4 F) 08/29/2024 3:00 PM EST Respiratory Rate 16 08/29/2024 3:00 PM EST Oxygen Saturation 99% 08/29/2024 3:00 PM EST Inhaled Oxygen Concentration - - Weight 51.3 kg (113 lb) 08/29/2024 3:00 PM EST Height 152.4 cm (5') 08/29/2024 3:00 PM EST Body Mass Index 22.07 08/29/2024 3:00 PM EST Plan of Treatment Upcoming Encounters Date Type Department Care Team (Late st Contact Info) Description 03/10/2025 2:30 PM EDT Office Visit Adult Medicine [facility] [address] [place] [address] Brissa Jerez MD [address] [place] [address] 06/18/2025 1:00 PM EST Office Visit [facility] [address] [place] [address] Clovis Falcon MD [address] [place] [address] [address] [place] [address] Health Maintenance Due Date Last Done Comments Diabetes: Annual Foot Exam 1956 Zoster Vaccines (1 of 2) 1996 RSV Immunization Adult Patients (1 - 1-dose 75+ series) 2021 Falls Risk Assessment 06/25/2022 Medicare Annual Wellness Visit 06/25/2022 Social Influencers of Health Screening 06/25/2022 COVID-19 Vaccine ( season) 2024 06/25/2021, 12/08/2020, 11/17/2020 Depression Screening 07/17/2024 Diabetes: Blood Sugar Control Test (HGBA1C) 02/09/2025 08/12/2024, 12/25/2023, 12/25/2023 Influenza Vaccine (#1) 2025 , 04/24/2023, 04/29/2022, Additional history exists Diabetes: Annual Retina Eye Exam 08/06/2025 08/06/2024, 12/13/2023 Diabetes: Annual Urine Albumin-Creatinine Ratio (uACR) 08/12/2025 08/12/2024, 08/28/2023 Diabetes: Annual GFR (Glomerular Filtration Rate) 08/12/2025 08/12/2024, 08/28/2023 Hypertension/CHF/CAD Annual BMP Blood Test 08/12/2025 08/12/2024, 08/28/2023 Cholesterol Screening (Lipid Panel) 12/24/2028 12/25/2023, 12/25/2023 DTaP,Tdap,and Td Vaccines (2 - Td or Tdap) 06/09/2031 06/09/2021 Osteoporosis Screening (Bone Density Screening) 11/12/2034 11/12/2024, 05/24/2022, 08/21/2019, Additional history exists Hepatitis C Screening Completed 10/18/2017 Pneumococcal Vaccine: 50+ Years Completed 07/26/2019, 05/09/2017 HIB Vaccines Aged Out No longer eligi ble based on patient's age to complete this topic HPV Vaccines Aged Out No longer eligi ble based on patient's age to complete this topic Hepatitis A Vaccines Aged Out No long er eligible based on patient's age to complete this topic Hepatitis B Vaccines Aged Out No long er eligible based on patient's age to complete this topic IPV Vaccines Aged Out No longer eligi ble based on patient's age to complete this topic MMR Vaccines Aged Out No longer eligi ble based on patient's age to complete this topic Meningococcal ACWY Vaccine Aged Out N o longer eligible based on patient's age to complete this topic Meningococcal B Vaccine Aged Out No l onger eligible based on patient's age to complete this topic RSV Immunization Patients Under 20 months Aged Out No longer eligible based on patient's age to complete this topic Varicella Vaccines Aged Out No longer eligible based on patient's age to complete this topic Procedures Procedure Name Priority Date/Time Associated Diagnosis Comments BD BONE DENSITY DXA AXIAL SKELETON Routine 11/12/2024 2:13 PM EDT Osteopenia, unspecified location Asymptomatic menopausal state MICROALBUMIN CREATININE URINE RATIO Routine 08/12/2024 3:04 PM EST DM type 2 with diabetic peripheral neuropathy (CMS/HCC V24, CMS/HCC V28) COMPREHENSIVE METABOLIC PANEL Routine 08/12/2024 3:04 PM EST DM type 2 with diabetic peripheral neuropathy (CMS/HCC V24, CMS/HCC V28) HEMOGLOBIN A1C Routine 08/12/2024 3:04 PM EST DM type 2 with diabetic peripheral neuropathy (CMS/HCC V24, CMS/HCC V28) EXTERNAL DIABETIC RETINA EYE EXAM Routine 08/06/2024 2:55 PM EST LIPID PANEL Routine 12/25/2023 HM HEPATITIS C SCREENING Routine 10/18/2017 from Last 3 Months or Most Recently Relevant to Health Maintenance Results * BD Bone Density DXA Axial Skeleton (11/12/2024 2:13 PM EDT) Anatomical Region Laterality Modality Wrist, Hip, L-spine Bone Densito metry 11/13/2024 11:0 7 AM EDT Impressions 11/13/2024 11:10 AM EDT Osteopenia. The NOF guidelines recommend that FDA approved medical therapies be considered in postmenopausal women and men age >50 years with a: i. Hip or vertebral (clinical or morphometric) fracture ii. T score of < -2.5 at the spine or hip iii. 10 year fracture probability by FRAX of >3% for hip fracture, or >20% for major osteoporotic fracture PLEASE NOTE: W.H.O. classification is based on lowest measured density at the spine, femoral neck, or total hip.This classification has prognostic significance when applied to post menopausal women and older men. 1) The World Health Organization defines low BMD as follows: T-score Normal at or > -1 Osteopenia < -1 and > -2.5 Osteoporosis at or < -2.5 without fractures Established osteoporosis < -2.5 with fractures -------- FINAL REPORT -------- Dictated By: Celia Michelle Dictated Date: 11/13/2024 11:07 ET Assigned Physician: Celia Michelle Reviewed and Electronically Signed By: Celia Michelle Signed Date: 11/13/2024 11:10 ET Workstation ID: [id number] Transcribed By: Self Edit Transcribed Date: 11/13/2024 11:07 ET Narrative 11/13/2024 11:10 AM EDT Clinical history: osteopenia Scans of the lumbar spine and hips were performed on a Hubspan/Buccaneer fan beam bone densitometer. Bone mineral density measurements and associated T and Z scores respectively are as follows: Lumbar Spine: L1-L4 BMD: 0.890 g/cm2 T-Score: -1.4 Z-Score: 1.2 Compared with the prior study dated 05/24/2022, the BMD reading has decreased which is not statistically significant Left Proximal Femur: Neck BMD: 0.594 g/cm2 T-Score: -2.3 Z-Score: -0.2 Total BMD: 0.807 g/cm2 T-Score: -1.1 Z-Score: 0.8 Compared with the prior study the mean BMD reading in the total left hip has decreased which is not statistically significant Compared with standards for the young adult, lowest measured bone density places the patient in the W.H.O. osteopenic range. FRAX 10 year probability of major osteoporotic fracture: 14% FRAX 10 year probability of hip fracture: 4% Population: [place] () Procedure Note Celia Michelle MD - 11/13/2024 Clinical history: osteopenia Scans of the lumbar spine and hips were performed on a Hubspan/AvidBioticsigyfan beam bone densitometer. Bone mineral density measurements and associated T and Z scoresrespectively are as follows: Lumbar Spine: L1-L4 BMD: 0.890 g/cm2 T-Score: -1.4 Z-Score: 1.2 Compared with the prior study dated 05/24/2022, the BMD reading hasdecreased which is not statistically significant Left Proximal Femur: Neck BMD: 0.594 g/cm2 T-Score: -2.3 Z-Score: -0.2 Total BMD: 0.807 g/cm2 T-Score: -1.1 Z-Score: 0.8 Compared with the prior study the mean BMD reading in the total left hiphas decreased which is not statistically significant Compared with standards for the young adult, lowest measured bone densityplaces the patient in the W.H.O. osteopenic range. FRAX 10 year probability of major osteoporotic fracture: 14% FRAX 10 year probability of hip fracture: 4% Population: [place] () IMPRESSION: Osteopenia. The NOF guidelines recommend that FDA approved medical therapies beconsidered in postmenopausal women and men age >50 years with a: i. Hip or vertebral (clinical or morphometric) fracture ii. T score of < -2.5 at the spine or hip iii. 10 year fracture probability by FRAX of >3% for hip fracture, or >20%for major osteoporotic fracture PLEASE NOTE: W.H.O. classification is based on lowest measured density at the spine,femoral neck, or total hip.This classification has prognostic significancewhen applied to post menopausal women and older men. 1) The World Health Organization defines low BMD as follows: T-score Normal at or > -1 Osteopenia < -1 and > -2.5 Osteoporosis at or < -2.5 withoutfractures Established osteoporosis < -2.5 with fractures -------- FINAL REPORT -------- Dictated By: Celia Michelle Dictated Date: 11/13/2024 11:07 ET Assigned Physician: Celia Michelle Reviewed and Electronically Signed By: Celia Michelle Signed Date: 11/13/2024 11:10 ET Workstation ID: [id number] Transcribed By: Self Edit Transcribed Date: 11/13/2024 11:07 ET us Monserr[facility]K IMG DXA PROCEDURES Final Resu lt * Microalbumin creatinine urine ratio (08/12/2024 3:04 PM EST) Creatinine, Urine 62.0 mg/dL LAB CHEMISTRY METHOD 08/12/2024 5:42 PM EST [facility] Microalb, Ur 7.8 0.0 - 29.0 mg/L LAB CHEMISTRY METHOD 08/12/2024 5:42 PM EST [facility] Microalb/Creat Ratio 13 <30 mg/g creat LAB CHEMISTRY METHOD 08/12/2024 5:42 PM [facility] Urine Urine specimen from urethra / Unknown Non-blood Collection / Unknown 08/12/2024 3:04 PM EST 08/12/2024 3:04 PM EST us [facility] LAB URINE ORDERABLES Final Re sult Performing Organization Address City/[facility]/ZIP Co de Phone Number [facility] [address] [place] [address], [place] [phone] * (ABNORMAL) Hemoglobin A1c (08/12/2024 3:04 PM EST) Hemoglobin A1C 8.3(H) <6.5 % LAB CHEMISTRY METHOD 08/12/2024 9:18 PM EST [facility] Mean Bld Glu Estim. 192 mg/dL LAB CHEMISTRY METHOD 08/12/2024 9:18 PM [facility] Blood Venous blood specimen / Unknown Venipuncture / Unknown 08/12/2024 3:04 PM EST 08/12/2024 3:04 PM EST us [facility] LAB BLOOD ORDERABLES Final Re sult Performing Organization Address City/[facility]/ZIP Co de Phone Number [facility] [address] [place] [address], [place] [phone] * (ABNORMAL) Comprehensive metabolic panel (08/12/2024 3:04 PM EST) Sodium 138 133 - 145 mmol/L LAB CHEMISTRY METHOD 08/12/2024 5:23 PM [facility] Potassium 5.0 3.5 - 5.5 mmol/L LAB CHEMISTRY METHOD 08/12/2024 5:23 PM EST [facility] Chloride 105 96 - 110 mmol/L LAB CHEMISTRY METHOD 08/12/2024 5:23 PM [facility] CO2 29 21 - 32 mmol/L LAB CHEMISTRY METHOD 08/12/2024 5:23 PM [facility] Anion Gap 4 3 - 11 LAB CHEMISTRY METHOD 08/12/2024 5:23 PM [facility] Glucose 285(H) 70 - 100 mg/dL LAB CHEMISTRY METHOD 08/12/2024 5:23 PM [facility] BUN 13 5 - 25 mg/dL LAB CHEMISTRY METHOD 08/12/2024 5:23 PM [facility] Creatinine 0.75 0.50 - 1.10 mg/dL LAB CHEMISTRY METHOD 08/12/2024 5:23 PM [facility] eGFR 82 >=60 mL/min/1. 73m2 LAB CHEMISTRY METHOD 08/12/2024 5:23 PM [facility] Comment:Calculation based on the Chronic Kidney Disease Epidemiology Collaboration (CKD-EPI) equation refit without adjustment for race. BUN/Creatinine Ratio 17.3 LAB CHEMISTRY METHOD 08/12/2024 5:23 PM [facility] Calcium 9.7 8.5 - 10.5 mg/dL LAB CHEMISTRY METHOD 08/12/2024 5:23 PM [facility] AST (SGOT) 36 10 - 42 unit/L LAB CHEMISTRY METHOD 08/12/2024 5:23 PM [facility] ALT (SGPT) 68(H) 10 - 60 unit/L LAB CHEMISTRY METHOD 08/12/2024 5:23 PM [facility] Alkaline Phosphatase 94 42 - 121 unit/L LAB CHEMISTRY METHOD 08/12/2024 5:23 PM [facility] Total Protein 7.0 6.0 - 8.0 g/dL LAB CHEMISTRY METHOD 08/12/2024 5:23 PM [facility] Albumin 3.7 3.2 - 5.0 g/dL LAB CHEMISTRY METHOD 08/12/2024 5:23 PM EST [facility] Total Bilirubin 0.2 0.0 - 1.4 mg/dL LAB CHEMISTRY METHOD 08/12/2024 5:23 PM EST [facility] Blood Venous blood specimen / Unknown Venipuncture / Unknown 08/12/2024 3:04 PM EST 08/12/2024 3:04 PM EST us Monserr[facility]ECK LAB BLOOD ORDERABLES Final Re sult [facility] [address] [place] [address], [place] [phone] * External Diabetic Retina Eye Exam Report (08/06/2024 2:55 PM EST) Anatomical Region Laterality Modality Ultrasound Ne Balderas MD IMG US PROCEDURES Final R esult * Lipid panel (12/25/2023) LDL/HDL Ratio 2 0 - 4 Triglycerides 66 0 - 150 mg/dL Cholesterol 93 0 - 200 mg/dL HDL 44 >=40 mg/dL LDL Cholesterol 36 0 - 100 mg/dL Blood Venous blood specimen / Unknown Historical Provider LAB BLOOD ORDERABLES Sejal l Result * Hepatitis C Screening (10/18/2017) Pathologist [facility] Hepatitis C Screening Abstracted Historical Provider HEALTH MAINTENANCE Final Result from Last 3 Months or Most Recently Relevant to Health Maintenance Insurance MEDICAID - [place] [employer] MEDICARE Care Teams Educational Interpreter Relationship Specialty Start Date End Date Brissa Jerez MD [address] [place] [address] PCP - General Internal Medicine 01/13/21
== END 2025-03-10 09:46 | disposition home or self-care (01) ==
LOC: HO.HSM 09:32
PROVIDERS: PCP Internal Medicine; Visit Provider Registered Nurse
DX: G30.9 Alzheimer's disease, unspecified (principal); F02.83 Dementia in other diseases classified elsewhere, unspecified severity, with mood disturbance
CPT/HCPCS: 99214